=== PATIENT | male | born 1960 | race Caucasian/White ===

== ENCOUNTER → 2021-04-19 | Outpatient (CLI) | payer OTHER ==
[~2021-04-19] MED LIST: PROHANCE 279.3MG/ML 15ML VIAL As Ordered ONE; PROHANCE 279.3MG/ML 5ML VIAL As Ordered ONE
--- NOTE | 2021-04-20 09:15 | REP ---
INDICATION: LBP. COMPARISON: None. TECHNIQUE: Multiple sequences obtained in the sagittal and axial planes prior to and following the intravenous administration of 17 mL ProHance. FINDINGS: The vertebral bodies are normal in height with no compression fracture. There is minimal retrolisthesis of L3 on L4, L4 on L5 and L5 on S1. There is diffuse loss of water signal and disc degeneration, with mild disc space narrowing at L4-5 and L5-S1. The conus is unremarkable. No enhancing lesions are seen. At L1-2 mild hypertrophic change at the posterior facet joints. There is no significant disc bulging or herniation. There is no spinal stenosis or foraminal narrowing. At L2-3 there is slight diffuse disc bulging and mild hypertrophic change at the posterior facet joints. There is no spinal stenosis or foraminal narrowing. At L3-4 there is mild diffuse disc bulging and hypertrophic change at the posterior facet joints. There is no significant spinal stenosis. There is mild bilateral foraminal narrowing. At L4-5 there is mild hypertrophic change at the posterior facet joints and hypertrophy of ligamentum flavum. There is minimal diffuse disc bulging. There is no spinal stenosis. There is mild left foraminal stenosis. At L5-S1 there is mild diffuse disc bulging mild hypertrophic change at the posterior facet joints. There is no spinal stenosis. There is moderate bilateral foraminal narrowing. IMPRESSION: No acute abnormalities. Degenerative disc changes as discussed in detail above. No spinal stenosis. There are areas of foraminal narrowing. Preliminary report provided by [facility] at the time of the exam. <Electronically signed by Kenneth Rodriguez > 04/20/21 0916
== END ==
LOC: M RAD 16:42
PROVIDERS: ATTEND Physician Assistant
DX: M51.36 Other intervertebral disc degeneration, lumbar region (principal)
CPT/HCPCS: 72158; A9576